=== PATIENT | female | born 1990 | race Two or more races ===

== ENCOUNTER 2024-02-21 09:41 | Emergency (ER) | payer OTHER ==
[~2024-02-21] VITALS: Ht 165.1 cm; Wt 62.7 kg
[2024-02-21 10:05] VITALS: TEMP 98.4
[2024-02-21 10:08] VITALS: BP 135/84; PULSE 85; RESP 16; O2SAT 98
[2024-02-21] MEDS ORDERED: IBUP-1454 PO (13:32)
== END 2024-02-21 13:50 | disposition home or self-care (01) ==
LOC: ER 09:41
DX: M79.18 Myalgia, other site (principal); M54.2 Cervicalgia; M54.6 Pain in thoracic spine; V89.2XXA Person injured in unspecified motor-vehicle accident, traffic, initial encounter; Y93.89 Activity, other specified; Y92.89 Other specified places as the place of occurrence of the external cause; Y99.8 Other external cause status
CPT/HCPCS: 72040; 72070